=== PATIENT | female | born 1950 ===

== ENCOUNTER 2021-09-13 14:16 | Observation (INO) | payer MEDICARE ==
[~2021-09-13] VITALS: Ht 175.3 cm; Wt 81.7 kg
[2021-09-13 17:48] LABS: BASOPHILS ABSOLUTE AUTO 0.03 K/mm3 (0.00-0.23); BASOPHILS PERCENT AUTO 0 % (0-2); EOSINOPHILS ABSOLUTE AUTO 0.07 K/mm3 (0.00-0.68); EOSINOPHILS PERCENT AUTO 1 % (0-6); Hematocrit 41.7 % (33.0-51.0); Hemoglobin 13.5 g/dL (11.5-16.0); IMMATURE GRAN ABSOLUTE AUTO 0.01 K/mm3 (0.00-0.10); IMMATURE GRAN PERCENT AUTO 0 % (0-1); LYMPHOCYTES ABSOLUTE AUTO 3.32 K/mm3 (0.84-5.20); LYMPHOCYTES PERCENT AUTO 39 % (21-46); MONOCYTES ABSOLUTE AUTO 0.62 K/mm3 (0.16-1.47); MONOCYTES PERCENT AUTO 7 % (4-13); Mean Corpuscular HGB 29.9 pg (26.0-34.0); Mean Corpuscular HGB Conc 32.4 g/dL (31.5-36.5); Mean Corpuscular Volume 93 fL (80-100); Mean Platelet Volume 10.1 fL (9.1-12.4); NEUTROPHILS ABSOLUTE AUTO 4.45 K/mm3 (1.96-9.15); NEUTROPHILS PERCENT AUTO 52 % (41-73); Platelet Count 288 K/mm3 (150-400); RDW Coefficient Variation 14.7 % (11.7-14.2); RDW Standard Deviation 49.2 fL (35.1-46.3); Red Blood Cell Count 4.51 M/mm3 (3.80-5.20)
[2021-09-13 17:58] LABS: Albumin, Blood 3.7 g/dL (3.4-5.0); Albumin/Globulin Ratio 1.2 (0.8-1.8); Bilirubin, Total 0.5 mg/dL (0.1-1.0); Bun/Creatinine Ratio 11.2 (12.0-20.0); Calcium, Blood 9.6 mg/dL (8.5-10.1); Creatinine, Blood 0.54 mg/dL (0.40-1.00); Potassium, Blood 3.3 mmol/L (3.5-5.5); Total Protein, Blood 6.7 g/dL (6.4-8.2)
[2021-09-13 18:02] LABS: Source, Urine Straight Cath
[2021-09-13 18:22] LABS: Appearance, Urine Clear (Clear); Bilirubin, Urine Neg (Neg); Blood, Urine 3+ (Neg); Color, Urine Yellow (P-Yellow); Glucose Qualitative, Urine Neg (Neg); Ketones, Urine 1+ (Neg); Leukocyte Esterase, Urine Neg (Neg); Nitrite, Urine Neg (Neg); Protein, Urine Neg (Neg); Urobilinogen, Urine NORM (Normal)
[2021-09-13 18:35] LABS: Squamous Epithelial Cells Few /hpf (Few); White Blood Cells, Urine 0-2 /hpf (0-5)
[2021-09-13 18:36] LABS: Bacteria Few /hpf; Mucus Light (0-Heavy)
[2021-09-15 23:18] LABS: Albumin, Blood 3.9 g/dL (3.4-5.0); Albumin/Globulin Ratio 1.3 (0.8-1.8); Bilirubin, Total 0.8 mg/dL (0.1-1.0); Bun/Creatinine Ratio 10.7 (12.0-20.0); Calcium, Blood 9.5 mg/dL (8.5-10.1); Creatinine, Blood 0.47 mg/dL (0.40-1.00); Potassium, Blood 3.2 mmol/L (3.5-5.5); Total Protein, Blood 6.9 g/dL (6.4-8.2)
[2021-09-15] MEDS ORDERED: QUET25 PO (23:48)
[2021-09-15] MEDS ORDERED: QUETIAPINE FUMA25 MG PO (23:48)
[2021-09-15] MEDS ORDERED: [UNRECOGNIZED DRUG - CODE] PO (23:49)
[2021-09-15] MEDS ORDERED: VERA120 PO (23:49)
[2021-09-15] MEDS ORDERED: Divalproex Sod125 M1 PO (23:50)
[2021-09-15] MEDS ORDERED: SUCRALFATE PO (23:50)
[2021-09-15] MEDS ORDERED: LANSOPRAZOLE30 MG PO (23:50)
[2021-09-15] MEDS ORDERED: PYRIDOSTIGMINE180 MG PO (23:51)
[2021-09-15] MEDS ORDERED: PYRIDOSTIGMINE PO (23:51)
[2021-09-15] MEDS ORDERED: [UNRECOGNIZED DRUG - CODE] PO (23:54)
--- NOTE | 2021-09-16 03:53 | NUR ---
TRANSFER NOTE 70 YR OLD FEMALS ADMITTED TO FLOOR FROM THE ED. ED RN VOICED PT HAD BEEN IN THE ED FOR "TWO DAYS" BEFORE COMING TO THE FLOOR. PT HAD COME IN FOR ABD PAIN TO BE EVALUATED AND WAS TOO AGGRESSIVE AT HOME AND THEY COULD NO LONGER TAKE CARE OF HER. PT HAS DEMENTIA. UPON ARRIVAL AT FLOOR, PT ATTEMPTED TO CLIMB CHIVO THE BEDRAILS AND WOULD NOT OR COULD NOT REDIRECT. PLACED IN STEPHANY VEST AND 4 RAILS UP FOR SAFETY PER MD ORDERS. NEW IV PLACED IN RIGHT A/C. 1/2 NS INFUSING AT 75 ML/HR AND K+ INFUSING ORDERED - SEE MAR FOR DETAILS. CALL LIGHT IN REACH. HOB ELEVATED. ATTEMPTED TO GIVE PO APPLEAUCE BUT PT JUST SPIT IT BACK. WILL CONTINUE TO MONITOR
[2021-09-16 08:34] LABS: Bun/Creatinine Ratio 10.4 (12.0-20.0); Calcium, Blood 9.4 mg/dL (8.5-10.1); Creatinine, Blood 0.48 mg/dL (0.40-1.00); Potassium, Blood 3.6 mmol/L (3.5-5.5)
--- NOTE | 2021-09-16 16:08 | NUR ---
PT IS ALERT ORIENTED TO SELF ONLY. THIS AM THE PT WAS MORE AWAKE COMPARED TO THIS AFTERNOON. THIS AM THE PT WAS WIDE AWAKE SPEEKING INCOMPREHENSIBLY WHILE TRYING TO EAT AND TAKEING HER MEDICATIONS. THIS AFTERNOON THE PT HAS BEEN MOSTLY SLEEPING ONLY TAKEING BITES OCCASIONALLY AT TIMES. PT IS RESTRAINED DUE TO PULLING AT LINES AND HIGH FALL RISK. PT APPEARS TO BE BREATHING EASILY AT THIS TIME ON RA. CALL LIGHT IN REACH WILL CONTINUE TO MONITOR AND ASSESS FOR CHANGES
--- NOTE | 2021-09-17 04:19 | NUR ---
SHIFT SUMMARY PT CONTINUES TO BE IN RESTRAINTS. ORDER RENEWED FOR WRIST, STEPHANY VEST, AND 4 RAILS AT 0100. PT CONFUSED AND NOT MAKING SENSE. PT HAS NOT SLEPT DURING THIS SHIFT. PT REFUSED MEDICATIONS LAST EVENING. PT WAS PLEASANT, BUT HAD AN EPISODE OF AGGRESSION AND AGITATION, AFTER SHE WAS ABLE TO SLIP OUT OF HER RESTRAINTS. PT READJUSTED IN THE BED, PLACED BACK IN RESTRAINTS, AND MEDICATED WITH ZYPREXA. PT HAS NOT HAD ANY FURTHER EPISODES, BUT CONTINUES TO BE AWAKE. RESTRAINTS ARE BEING CHECKED EVERY TWO HOURS.
--- NOTE | 2021-09-17 12:58 | NUR ---
PT DISCHARGED THE PT WAS DISCHARGED TO [facility] IN [place]. PT WAS TRANSFERED VIA GURNEY ACCOMPANIED BY [employer]. PT VERY CONFUSED AT THE TIME OF DC AND SCREAMING OUTLOUD. ORDERS FAXED TO THE [facility] BY THE SENIOR SUPPLY CHAIN ANALYST
--- NOTE | 2021-09-17 15:35 | NUR ---
PT DISCHARGED THE PT VERBALIZED UNDERSTANDING OF THE DC INSTRUCTIONS. FOLLOW UP APPOINTMENTS WERE SCHEDULED FOR THE PT PRIOR TO DC. THE PT WAS MEDICATED FOR BACK PAIN JUST PRIOR TO DC. THE PT WAS TRANSFERED VIA WHEELCHAIR ACOMPANIED BY THE OPTICAL SYSTEMS ENGINEER TO MEET HER RIDE AT THE FRONT DOOR.
== END 2021-09-17 12:54 | disposition home or self-care (01) ==
LOC: ER 14:16 → MEDS 14:17
PROVIDERS: Internal Medicine; Student in an Organized Health Care Education/Training Program; ADMIT Internal Medicine
DX: F03.91 Unspecified dementia, unspecified severity, with behavioral disturbance (principal); F05 Delirium due to known physiological condition; R44.3 Hallucinations, unspecified; R45.1 Restlessness and agitation
CPT/HCPCS: 36415; 51701; 70450; 80048; 80053; 81001; 84484; 85025; 93005; 93010; 96365-59; 96366; 96366-59; 96372; 96372-59; 96375-59; 96376; 99285-25; A9270; G0378; J1650; J1790; J2060; J3480; J3486; J7030; J7517